=== PATIENT | female | born 2000 | race African-American/Black ===

== ENCOUNTER 2022-11-01 17:05 | Emergency (ER) | payer BC, OTHER ==
[~2022-11-01] VITALS: Ht 170.2 cm; Wt 70.0 kg
[2022-11-01 20:00] VITALS: BP 120/69
[2022-11-01 21:35] LABS: BASOPHILS % 0.7 % (0.0-2.0); EOSINOPHILS % 1.2 % (0.0-5.0); HEMATOCRIT. 39.8 % (36.0-48.0); LYMPHOCYTES % 25.2 % (20.0-50.0); MEAN CORPUSCULAR HEMOGLOBIN 28.8 pg (28.0-32.0); MEAN CORPUSCULAR VOLUME 81.7 fL (81.0-99.0); MONOCYTES % 7.2 % (2.0-8.0); NEUTROPHILS % 65.7 % (40.0-76.0); RED BLOOD CELL COUNT 4.87 mill/uL (4.2-5.4)
[2022-11-01 21:39] LABS: CHLORIDE 111 mEq/L (98-107)
[2022-11-01 22:56] LABS: MEAN PLATELET VOLUME 8.6 fl (7.4-10.4); PLATELET 315 x1000/uL (130-400)
[2022-11-01] MEDS ORDERED: ONDA4TAB50 MT (23:24)
[2022-11-01] MEDS ORDERED: FAMO40TA70 MT (23:24)
== END 2022-11-01 23:52 | disposition home or self-care (01) ==
LOC: ER 17:05
DX: R10.13 Epigastric pain (principal); Z88.0 Allergy status to penicillin
CPT/HCPCS: 36415; 76705; 80053; 81025; 85025; 99284